=== PATIENT | male | born 1985 | race Caucasian/White ===

== ENCOUNTER 2020-07-22 17:41 | Emergency (ER) | payer BC ==
--- NOTE | 2020-07-22 19:22 | RAD REPORT ---
EXAM DESCRIPTION: CT - Head Brain Wo Cont - 07/22/2020 7:16 pm CLINICAL HISTORY: HEADACHE Headache, drowsiness COMPARISON: No comparisons TECHNIQUE: All CT scans are performed using dose optimization technique as appropriate and may inclu de automated exposure control or mA/KV adjustment according to patient size. FINDINGS: No intracranial hemorrhage, hydrocephalus or extra-axial fluid collection.No areas of brai n edema or evidence of midline shift. The paranasal sinuses and mastoids are clear. The calvarium is intact. IMPRESSION: No acute intracranial abnormality.
--- NOTE | 2020-07-22 19:23 | RAD REPORT ---
EXAM DESCRIPTION: CT - Soft Tissue Neck W/Contr CLINICAL HISTORY: PAIN Neck pain and swelling COMPARISON: No comparisons TECHNIQUE All CT scans are performed using dose optimization technique as appropriate and may includ e automated exposure control or mA/KV adjustment according to patient size. FINDINGS: Nasopharyngeal tissues are normal in appearance. Fossa Rosenmller are normal. Both palatine tonsils are mildly enlarged. Tongue base structures are normal. Epiglottis and aryepiglottic folds are normal. Piriform sinuses are well aerated. Normal sized thyroi d gland. The vocal cords are normal in appearance. Salivary glands are normal in appearance. No bulky lymphadenopathy in the neck. Upper lung whipple are clear. Included intracranial contents are unremarkable. IMPRESSION: No acute abnormality detected.
--- NOTE | 2020-07-22 19:28 | ER ---
Nurse's Notes [facility] Name: Jose Martinez Age: 35 yrs Sex: Male : 1985 Arrival Date: 07/22/2020 Time: 17:45 Bed Ultrasound Private MD: Diagnosis: Right sided neck pain Presentation: 07/22 17:51 Chief complaint: Sharp right sided neck pain that radiates to right side of face and hb eye x 2 days. Denies fever/injury/cough/sore throat. Coronavirus screen: At this time, the client does not indicate any symptoms associated with coronavirus-19. Ebola Screen: No symptoms or risks identified at this time. Initial Sepsis Screen: Does the patient meet any 2 criteria? No. Patient's initial sepsis screen is negative. Does the patient have a suspected source of infection? No. Patient's initial sepsis screen is negative. Risk Assessment: Do you want to hurt yourself or someone else? Patient reports no desire to harm self or others. Onset of symptoms was July 21, 2020. 17:51 Method Of Arrival: Ambulatory 17:51 Acuity: CHRIS 4 hb Triage Assessment: 18:44 General: Appears in no apparent distress. comfortable, Behavior is calm, cooperative. ls4 Pain: Complains of pain in neck Pain currently is 4 out of 10 on a pain scale. Quality of pain is described as sharp, shooting. Neuro: Level of Consciousness is awake, alert, obeys commands, Oriented to person, place, time, situation, Scaffold Builder are equal bilaterally Moves all extremities. Gait is steady, Speech is normal, Facial symmetry appears normal, Pupils are PERRLA, Intact. Respiratory: Airway is patent Respiratory effort is even, unlabored, Respiratory pattern is regular, Derm: No deficits noted. No signs and/or symptoms reported regarding the dermatologic system. Musculoskeletal: Circulation, motion, and sensation intact. Capillary refill < 3 seconds, Range of motion: intact in all extremities. Historical: - Allergies: 17:54 No Known Allergies; hb - Home Meds: 17:54 None [Active]; hb - PMHx: 17:54 None; hb - PSHx: 17:54 Left knee; hb - Immunization history:: Adult Immunizations up to date. - Social history:: Smoking status: Patient denies any tobacco usage or history of. Screenin:48 Abuse screen: Denies threats or abuse. Denies injuries from another. Nutritional ls4 screening: No deficits noted. Tuberculosis screening: No symptoms or risk factors identified. Fall Risk None identified. Assessment: 20:18 Reassessment: Patient appears in no apparent distress at this time. Patient and/or ls4 family updated on plan of care and expected duration. Pain level reassessed. Patient is alert, oriented x 3, equal unlabored respirations, skin warm/dry/pink. Neuro: No deficits noted. 20:18 Reassessment: Patient appears in no apparent distress at this time. Patient and/or ls4 family updated on plan of care and expected duration. Pain level reassessed. Patient is alert, oriented x 3, equal unlabored respirations, skin warm/dry/pink. PT DISCHARGE DELAYED, PT STATES THAT THE PAIN IS PULSATING, ULTRASOUND ORDERED. Neuro: Level of Consciousness is awake, alert, obeys commands, Oriented to person, place, time, situation, Scaffold Builder are equal bilaterally Moves all extremities. Gait is steady, Speech is normal, Facial symmetry appears normal. Cardiovascular: No deficits noted. Respiratory: No deficits noted. GI: No deficits noted. No signs and/or symptoms were reported involving the gastrointestinal system. : No deficits noted. No signs and/or symptoms were reported regarding the genitourinary system. Derm: No deficits noted. No signs and/or symptoms reported regarding the dermatologic system. Musculoskeletal: No deficits noted. No signs and/or symptoms reported regarding the musculoskeletal system. 20:52 Reassessment: Patient appears in no apparent distress at this time. Patient and/or ls4 family updated on plan of care and expected duration. Pain level reassessed. Patient is alert, oriented x 3, equal unlabored respirations, skin warm/dry/pink. Patient states symptoms have not improved. PT STILL CONCERNED THAT HE CAN SEE A PULSE IN HIS NECK. . Vital Signs: 17:51 BP 134 / 83; Pulse 83; Resp 16; Temp 97.8; Pulse Ox 100% on R/A; Weight 92.99 kg; hb Height 5 ft. 11 in. (180.34 cm); Pain 2/10; 20:53 BP 122 / 78; Pulse 74; Resp 16; Temp 97.9(O); Pulse Ox 99% on R/A; Pain 2/10; ls4 17:51 Body Mass Index 28.59 (92.99 kg, 180.34 cm) ED Course: 17:45 Patient arrived in ED. mr 17:53 Triage completed. hb 17:54 Arm band placed on. hb 18:02 No provider procedures requiring assistance completed. Inserted saline lock: 18 gauge ls4 in right antecubital area, using aseptic technique. 18:03 Sonya Beach [facility]-C [facility] kb 18:03 Andrae Matthews MD is Attending Physician. kb 18:25 Wedny Garcia, RN is Primary Nurse. ls4 18:48 Patient has correct armband on for positive identification. Bed in low position. Call ls4 light in reach. Side rails up X 1. Pulse ox on. NIBP on. Verbal reassurance given. 19:17 CT Soft Tissue Neck W/contr In Process Unspecified. EDMS 19:17 CT Head Brain wo Cont In Process Unspecified. EDMS 20:20 Ultrasound completed. Patient tolerated well. Notified DRY MOLDER/PA sonya. sg3 20:32 US Carotid Artery Bilateral In Process Unspecified. EDMS 20:54 IV discontinued, intact, bleeding controlled, No redness/swelling at site. Pressure ls4 dressing applied. Administered Medications: No medications were administered Outcome: 19:27 Discharge ordered by MD. kb 20:53 Discharged to home ambulatory. ls4 20:53 Condition: good 20:53 Discharge instructions given to patient, Instructed on discharge instructions, follow up and referral plans. Demonstrated understanding of instructions, follow-up care. 20:54 Patient left the ED. ls4 Signatures: Dispatcher [employer] EDMS Sonya Beach FNP-C FNP-Elina Albright Da SilvaJoanna, RN RN BazanKaitlin alcala sg3 Wendy Garcia, RN RN ls4
--- NOTE | 2020-07-22 19:28 | EDPHYS ---
Physician Documentation [facility] Name: Jose Martinez Age: 35 yrs Sex: Male : 1985 Arrival Date: 07/22/2020 Time: 17:45 Bed Ultrasound Private MD: ED Physician Andrae Matthews HPI: 07/22 18:49 This 35 yrs old Male presents to ER via Ambulatory with complaints of Neck kb Problem. 18:49 The patient or guardian complains of pain, that is acute, tenderness. The symptoms are kb located on the right submandibular area. Associated signs and symptoms: The patient has no apparent associated signs or symptoms, The patient denies any alcohol use. The patient is not apparently intoxicated. No neurological symptoms were experienced by the patient prior to arrival in the emergency department. Modifying factors: The symptoms are alleviated by nothing. the symptoms are aggravated by pressure. Severity of symptoms: At their worst the symptoms were moderate, in the emergency department the symptoms are unchanged. The patient has not experienced similar symptoms in the past. The patient has not recently seen a physician. 18:51 Onset: The symptoms/episode began/occurred last night. Context: The problem was kb sustained at home, The neck injury/problem resulted from from unknown cause. The pain does not radiate. pt reports neck pain with pressure to right submandibular area. States he woke up at 0230 and the pain was there. Reports he had a headache earlier today to right yazidism that is now resolved, but that is what made him come get it checked out. Historical: - Allergies: 17:54 No Known Allergies; hb - Home Meds: 17:54 None [Active]; hb - PMHx: 17:54 None; hb - PSHx: 17:54 Left knee; hb - Immunization history:: Adult Immunizations up to date. - Social history:: Smoking status: Patient denies any tobacco usage or history of. ROS: 18:47 Constitutional: Negative for fever, chills, and weight loss, ENT: Negative for injury, kb pain, and discharge, Cardiovascular: Negative for chest pain, palpitations, and edema, Respiratory: Negative for shortness of breath, cough, wheezing, and pleuritic chest pain, Abdomen/GI: Negative for abdominal pain, nausea, vomiting, diarrhea, and constipation, Back: Negative for injury and pain, MS/Extremity: Negative for injury and deformity, Skin: Negative for injury, rash, and discoloration. 18:47 Neck: Positive for tenderness, of the right submandibular area. 18:47 Neuro: Positive for headache. Exam: 18:47 Constitutional: This is a well developed, well nourished patient who is awake, alert, kb and in no acute distress. Head/Face: Normocephalic, atraumatic. ENT: Nares patent. No nasal discharge, no septal abnormalities noted. Tympanic membranes are normal and external auditory canals are clear. Oropharynx with no redness, swelling, or masses, exudates, or evidence of obstruction, uvula midline. Mucous membranes moist. Chest/axilla: Normal chest wall appearance and motion. Nontender with no deformity. No lesions are appreciated. Cardiovascular: Regular rate and rhythm with a normal S1 and S2. No gallops, murmurs, or rubs. Normal PMI, no JVD. No pulse deficits. Respiratory: Lungs have equal breath sounds bilaterally, clear to auscultation and percussion. No rales, rhonchi or wheezes noted. No increased work of breathing, no retractions or nasal flaring. Abdomen/GI: Soft, non-tender, with normal bowel sounds. No distension or tympany. No guarding or rebound. No evidence of tenderness throughout. Skin: Warm, dry with normal turgor. Normal color with no rashes, no lesions, and no evidence of cellulitis. MS/ Extremity: Pulses equal, no cyanosis. Neurovascular intact. Full, normal range of motion. Neuro: Awake and alert, GCS 15, oriented to person, place, time, and situation. Cranial nerves II-XII grossly intact. Motor strength 5/5 in all extremities. Sensory grossly intact. Cerebellar exam normal. Normal gait. 18:47 Neck: External neck: tenderness, that is moderate, of the right submandibular area, C-spine: appears grossly normal, no vertebral tenderness, no crepitus, Thyroid: appears normal, Trachea: is midline with no obvious abnormalities, ROM/movement: is normal, Lymph nodes: no appreciated lymphadenopathy. Vital Signs: 17:51 BP 134 / 83; Pulse 83; Resp 16; Temp 97.8; Pulse Ox 100% on R/A; Weight 92.99 kg; hb Height 5 ft. 11 in. (180.34 cm); Pain 2/10; 20:53 BP 122 / 78; Pulse 74; Resp 16; Temp 97.9(O); Pulse Ox 99% on R/A; Pain 2/10; ls4 17:51 Body Mass Index 28.59 (92.99 kg, 180.34 cm) hb MDM: 18:03 Patient medically screened. kb 18:47 Data reviewed: vital signs, nurses notes. Data interpreted: Pulse oximetry: on room air kb is 100 %. Interpretation: normal. 19:26 Counseling: I had a detailed discussion with the patient and/or guardian regarding: the kb historical points, exam findings, and any diagnostic results supporting the discharge/admit diagnosis, radiology results, the need for outpatient follow up, a family practitioner, to return to the emergency department if symptoms worsen or persist or if there are any questions or concerns that arise at home. 07/22 18:10 Order name: CT Soft Tissue Neck W/contr; Complete Time: 19:26 kb 07/22 18:10 Order name: CT Head Brain wo Cont; Complete Time: 19:23 kb 07/22 19:33 Order name: US Carotid Artery Bilateral kb Administered Medications: No medications were administered Disposition: 07/23 10:57 Co-signature as Attending Physician, Andrae Matthews MD I agree with the assessment and [facility] plan of care. Disposition: 07/22/20 19:27 Discharged to Home. Impression: Right sided neck pain. - Condition is Stable. - Discharge Instructions: Musculoskeletal Pain. - Prescriptions for Diclofenac Sodium 75 mg Oral Tablet, Delayed Release (E.C.) - take 1 tablet by ORAL route 2 times per day As needed; 30 tablet. - Medication Reconciliation Form, Thank You Letter, Antibiotic Education, Prescription Opioid Use form. - Follow up: Emergency Department; When: As needed; Reason: Worsening of condition. Follow up: Private Physician; When: 2 - 3 days; Reason: Recheck today's complaints, Continuance of care, Re-evaluation by your physician. Signatures: Dispatcher [employer] Sonya Simpson, SEMICONDUCTOR ENGINEER-C DEMARCUS-Andrae Wong MD MD cha Baxter, Heather, RN RN Wendy Mendes RN RN ls4 Corrections: (The following items were deleted from the chart) 07/22 20:54 19:27 07/22/2020 19:27 Discharged to Home. Impression: Right sided neck pain. Condition ls4 is Stable. Forms are Medication Reconciliation Form, Thank You Letter, Antibiotic Education, Prescription Opioid Use. Follow up: Emergency Department; When: As needed; Reason: Worsening of condition. Follow up: Private Physician; When: 2 - 3 days; Reason: Recheck today's complaints, Continuance of care, Re-evaluation by your physician. kb
--- NOTE | 2020-07-22 20:59 | RAD REPORT ---
EXAM DESCRIPTION: US - CP - 07/22/2020 8:32 pm CLINICAL HISTORY: PAIN Pain, headache, drowsiness COMPARISON: Soft Tissue Neck W/Contr dated 07/22/2020 TECHNIQUE: Real-time sonographic evaluation of both carotid systems was performed. Doppler interroga tion was performed with waveform tracing bilaterally. FINDINGS: Normal high resistance waveforms are noted in both external carotid arteries. The common c arotid arteries and internal carotid arteries show normal low resistance waveforms. No significant plaque formation is seen. Peak systolic and end diastolic velocity values and the ICA/ CCA ratios are in the non-hemodynamically significant range. Antegrade flow seen in both vertebral arteries. IMPRESSION: No significant atherosclerotic changes noted. No evidence of a hemodynamically significant stenosis.
[2020-07-22 21:53] VITALS: BP 122/78; TEMP 97.9; O2SAT 99
== END 2020-07-22 20:54 | disposition home or self-care (01) ==
LOC: ER 17:41
DX: M54.2 Cervicalgia (principal); R51 Headache
CPT/HCPCS: 82565; 70450; 70491; 93880; 99283; Q9967

== ENCOUNTER 2022-05-23 13:51 | Emergency (ER) | payer BC ==
--- NOTE | 2022-05-23 15:11 | RAD REPORT ---
EXAM DESCRIPTION: RAD - Elbow Right 3 View - 05/23/2022 2:54 pm CLINICAL HISTORY: Elbow pain FINDINGS: 3 millimeter triangular bony density lies along lateral aspect of the elbow. This is suspi cious for an acute avulsion fracture. Clinical correlation is needed see patient has point tenderness this region to confirm this. Bony density adjacent to medial humeral epicondyle appears chronic No dislocation
--- NOTE | 2022-05-23 15:29 | ER ---
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 Coronavirus screen: At this time, the client does not indicate any symptoms associated with coronavirus-19. Ebola Screen: Patient negative for fever greater than or equal to 101.5 degrees Fahrenheit, and additional compatible Ebola Virus Disease symptoms Patient denies exposure to infectious person. Patient denies travel to an Ebola-affected area in the 21 days before illness onset. No symptoms or risks identified at this time. Initial Sepsis Screen: Does the patient meet any 2 criteria? No. Patient's initial sepsis screen is negative. Does the patient have a suspected source of infection? No. Patient's initial sepsis screen is negative. Risk Assessment: Do you want to hurt yourself or someone else? Patient reports no desire to harm self or others. Onset of symptoms was May 20, 2022. 14:34 Method Of Arrival: Ambulatory iw 14:34 Acuity: CHRIS 4 iw Triage Assessment: 15:51 General: Appears in no apparent distress. Behavior is calm, cooperative. Injury alfred Description: fell on right elbow. Historical: - Allergies: 14:36 No Known Allergies; iw - Home Meds: 14:36 None [Active]; iw - PMHx: 14:36 None; iw - Immunization history:: Adult Immunizations up to date. - Social history:: Smoking status: unknown. Screenin:51 Abuse screen: Denies threats or abuse. Denies injuries from another. Nutritional alfred screening: No deficits noted. Tuberculosis screening: No symptoms or risk factors identified. Fall Risk None identified. Assessment: 15:50 Pain: Complains of pain in right elbow. Musculoskeletal: Reports pain in right arm Pain alfred is 10 out of 10 on a pain scale. Vital Signs: 14:34 BP 140 / 93; Pulse 89; Resp 16; Temp 98.0; Pulse Ox 100% on R/A; iw ED Course: 13:54 Patient arrived in ED. ja2 14:36 Triage completed. iw 14:37 Arm band placed on. iw 14:56 Elbow Right 3 View XRAY In Process Unspecified. EDMS 14:57 Sony[facility] Beach [facility]C [facility]. kb 14:57 Andrae Matthews MD is Attending Physician. kb 15:51 Patient has correct armband on for positive identification. Bed in low position. alfred 15:51 No provider procedures requiring assistance completed. Patient did not have IV access alfred during this emergency room visit. 15:51 Orthoglass splint: posterior elbow. zm Administered Medications: No medications were administered Medication: 15:50 VIS not applicable for this client. alfred Outcome: 15:29 Discharge ordered by . kb 15:52 Discharged to home ambulatory. alfred 15:52 Condition: good 15:52 Discharge instructions given to patient, Prescriptions given X 1. 15:53 Patient left the ED. alfred Signatures: Dispatcher [employer] EDMO Sonya Beach FNP-C FNP-Ckb Williams, Irene, RN Dominique Vazquez Heather, RN RN ha Martinez, Zaina zm
--- NOTE | 2022-05-23 15:30 | EDPHYS ---
Physician Documentation [facility] Name: Jose Martinez Age: 36 yrs Sex: Male : 1985 Arrival Date: 05/23/2022 Time: 13:54 Bed DIS3 Private MD: ED Physician Andrae Matthews HPI: 05/23 17:27 This 36 yrs old Male presents to ER via Ambulatory with complaints of Arm Injury. kb 17:27 The patient or guardian complains of injury, pain, swelling, tenderness. The complaints kb affect the right elbow. Context: The problem was sustained outdoors, resulted from a fall. Associated signs and symptoms: Pertinent positives: decreased range of motion, pain, swelling. Severity of symptoms: At their worst the symptoms were moderate, in the emergency department the symptoms are unchanged. The patient has not experienced similar symptoms in the past. The patient has not recently seen a physician. 17:31 Onset: The symptoms/episode began/occurred 5 day(s) ago. Treatment prior to arrival kb includes: no previous treatment. Modifying factors: The symptoms are alleviated by nothing. the symptoms are aggravated by movement. Historical: - Allergies: 14:36 No Known Allergies; iw - Home Meds: 14:36 None [Active]; iw - PMHx: 14:36 None; iw - Immunization history:: Adult Immunizations up to date. - Social history:: Smoking status: unknown. ROS: 17:24 Constitutional: Negative for fever, chills, and weight loss. kb 17:24 MS/extremity: Positive for decreased range of motion, pain, swelling, tenderness, of the right elbow. 17:24 All other systems are negative. Exam: 17:25 Constitutional: This is a well developed, well nourished patient who is awake, alert, kb and in no acute distress. Head/Face: Normocephalic, atraumatic. ENT: Moist Mucous membranes Cardiovascular: Regular rate and rhythm with a normal S1 and S2. No gallops, murmurs, or rubs. No pulse deficits. Respiratory: Respirations even and unlabored. No increased work of breathing. Talking in full sentences Skin: Warm, dry with normal turgor. Normal color. Neuro: Awake and alert, GCS 15, oriented to person, place, time, and situation. Moves all extremities. Normal gait. Psych: Awake, alert, with orientation to person, place and time. Behavior, mood, and affect are within normal limits. 17:25 Musculoskeletal/extremity: Extremities: grossly normal except: noted in the right elbow: decreased ROM, pain, swelling, tenderness, ROM: limited active range of motion, in the right elbow, Circulation is intact in all extremities. Sensation intact. Vital Signs: 14:34 BP 140 / 93; Pulse 89; Resp 16; Temp 98.0; Pulse Ox 100% on R/A; iw Procedures: 17:24 Splinting: Splint applied to right elbow using Orthoglass splint, sling, applied by kb tech. Examined by me, post splint application: neurovascular intact, 2+ distal pulses palpable, brisk capillary refill noted, Patient tolerated well. MDM: 15:29 Patient medically screened. kb 17:24 Data reviewed: vital signs, nurses notes. Data interpreted: Pulse oximetry: on room air kb is 100 %. Interpretation: normal. Counseling: I had a detailed discussion with the patient and/or guardian regarding: the historical points, exam findings, and any diagnostic results supporting the discharge/admit diagnosis, radiology results, the need for outpatient follow up, a orthopedic surgeon, to return to the emergency department if symptoms worsen or persist or if there are any questions or concerns that arise at home. 05/23 14:36 Order name: Elbow Right 3 View XRAY; Complete Time: 15:13 iw 05/23 15:29 Order name: Sling; Complete Time: 15:51 kb 05/23 15:29 Order name: Splint - Elbow - Posterior; Complete Time: 15:51 kb Administered Medications: No medications were administered Disposition Summary: 05/23/22 15:29 Discharge Ordered Location: Home kb Condition: Stable kb Diagnosis - Avulsion fracture right elbow kb Followup: kb - With: Emergency Department - When: As needed - Reason: Worsening of condition Followup: kb - With: Private Physician - When: 2 - 3 days - Reason: Recheck today's complaints, Continuance of care, Re-evaluation by your physician Discharge Instructions: - Discharge Summary Sheet kb - Musculoskeletal Pain kb Forms: - Medication Reconciliation Form kb - Thank You Letter kb - Antibiotic Education kb - Prescription Opioid Use kb Prescriptions: - Diclofenac Sodium 75 mg Oral tablet,delayed release (DR/EC) - take 1 tablet by ORAL route 2 times per day As needed; 30 tablet; Refills: 0, kb Product Selection Permitted - Cyclobenzaprine 10 mg Oral Tablet - take 1 tablet by ORAL route every 8 hours As needed; 15 tablet; Refills: 0, kb Product Selection Permitted Addendum: 05/25/2022 13:50 Co-signature as Attending Physician, Andrae CHEATHAM I agree with the assessment and c alfred plan of care. Signatures: Dispatcher [employer] Sonya Simpson, SCHOOL HEALTH AIDE-C DEMARCUS-Andrae Wong MD MD cha Williams, Irene, RN RN Joanna Palomares RN RN alfred
[2022-05-23 16:04] VITALS: BP 140/93; TEMP 98; O2SAT 100
== END 2022-05-23 15:53 | disposition home or self-care (01) ==
LOC: ER 13:51
PROC: 2W38X1Z Immobilization of Right Upper Extremity using Splint (ICD-10-PCS; principal; 2022-05-23)
DX: S42.401A Unspecified fracture of lower end of right humerus, initial encounter for closed fracture (principal)
CPT/HCPCS: 99283

== ENCOUNTER 2022-09-13 09:30 | Emergency (ER) | payer BC ==
--- OUTSIDE RECORDS SUMMARY | 2022-09-13 09:35 | XMS REPORT | Continuity of Care Document ---
:1985 Author Organization [facility] t Address [address] [place] [address] Care Team Providers Name Role Phone PCP, NO Primary Care Physician Unavailable Stan Attending Clinician Unavailable Kush Prince Attending Clinician Unavailable Kush Prince Attending Clinician [phone] REBLE CONTRERAS Attending Clinician Unavailable Stan Admitting Clinician Unavailable Kush Prince Admitting Clinician Unavailable Payers Payer Name Policy Type Policy Number Effective Date Expiration Date Brian moreno [place] [id number] 2021 00:00:00 [place] ([place] Problems Condition Condition Condition Status Onset Resolution Last Treating Co mments Source Name Details Category Date Date Treatment Clinician Date Postoperat Postoperat Problem Active A zalea jarad pain jarad Pain 9-20 Orthop e 00:00: dic 00 Sports Medicin e Rupture of Rupture of Problem Active A zalea elbow Elbow 9-16 Orthope ligament Ligament 00:00: dic 00 Sports Medicin e Pain in Pain in Problem Active Mihaela elbow Elbow 9-16 Orthope 00:00: dic 00 Sports Medicin e Closed Closed Problem Active Mihaela fracture Fracture 16 Orthop e of head of of Head of 00:00: di c right Right 00 Sports radius Radius Medicin e Allergies, Adverse Reactions, Alerts Allergy Allergy Status Severity Reaction(s) Onset Inactive Treating Comm ents Source Name Type Date Date Clinician NO KNOWN Allergy Active Unknown LAYLA U ALLERGY to 3-18 S substanc 00:00: Health e 00 Social History Social Habit Start Date Stop Date Quantity Comments Source Sex Assigned At [birth year] [facility] Smoking Status Start Date Stop Date Source Never Smoker Mihaela [facility] Sports Medicine Unknown if ever [facility] Ordered Filled Start Stop Current Ordering Indication Dosage Frequency Signature Comments Components Source Medication Medication Date Date Medication? Clinician (SIG) Name Name Amoxicillin No 875mg Twice A CH RISTU /Clavulanat 7-10 Day S e Potassium 05:55: Health (Augmentin 00 875 Mg) 1 Each TABLET acetaminoph acetaminoph No acetaminop Mihaela en 300 en 300 hen 300 Orthope mg-codeine mg-codeine mg-codeine dic 30 mg 30 mg 30 mg Sports tablet TAKE tablet TAKE tablet Medicin ONE (1) ONE (1) TAKE ONE e TABLET(S) TABLET(S) (1) BY MOUTH BY MOUTH TABLET(S) EVERY SIX EVERY SIX BY MOUTH HOURS HOURS EVERY SIX NEEDED FOR NEEDED FOR HOURS PAIN. PAIN. NEEDED FOR PAIN. amoxicillin amoxicillin No amoxicilli Mihaela 875 mg 875 mg n 875 mg Orthope tablet TAKE tablet TAKE tablet dic ONE (1) ONE (1) TAKE ONE Sport s TABLET BY TABLET BY (1) TABLET Medicin MOUTH TWICE MOUTH TWICE BY MOUTH e A DAY. A DAY. TWICE A DAY. amoxicillin amoxicillin No amoxicilli Mihaela 875 875 n 875 Orthope mg-potassiu mg-potassiu mg-potassi dic m m um Sports clavulanate clavulanate clavulanat Medicin 125 mg 125 mg e 125 mg e tablet tablet tablet cyclobenzap cyclobenzap No cyclobenza Mihaela rine 10 mg rine 10 mg lukas 10 Orthope tablet TAKE tablet TAKE mg tablet dic ONE (1) ONE (1) TAKE ONE Sport s TABLET(S) TABLET(S) (1) Medic in BY MOUTH BY MOUTH TABLET(S) e EVERY EIGHT EVERY EIGHT BY MOUTH HOURS HOURS EVERY NEEDED FOR NEEDED FOR EIGHT MUSCLE MUSCLE HOURS SPASMS. SPASMS. NEEDED FOR MUSCLE SPASMS. diclofenac diclofenac No diclofenac Mihaela sodium 75 sodium 75 sodium 75 Orthope mg mg mg dic tablet,eleuterio tablet,eleuterio tablet,del Sports yed release yed release ayed M edicin TAKE ONE TAKE ONE release e (1) (1) TAKE ONE TABLET(S) TABLET(S) (1) BY MOUTH BY MOUTH TABLET(S) TWICE A DAY TWICE A DAY BY MOUTH NEEDED. NEEDED. TWICE A DAY NEEDED. hydrocodone hydrocodone No 1 Q6H hydrocodon Mihaela 5 5 e 5 Orthope mg-acetamin mg-acetamin mg-acetami dic ophen 325 ophen 325 nophen 325 Sports mg tablet mg tablet mg tablet Medicin Take 1 Take 1 Take 1 e tablet tablet tablet every 6 every 6 every 6 hours by hours by hours by oral route oral route oral route as needed. as needed. as needed. meloxicam meloxicam No meloxicam Mihaela 7.5 mg 7.5 mg 7.5 mg Orthope tablet TAKE tablet TAKE tablet dic ONE (1) OR ONE (1) OR TAKE ONE Sports TWO (2) TWO (2) (1) OR TWO Med icin TABLET(S) TABLET(S) (2) e BY MOUTH BY MOUTH TABLET(S) DAILY DAILY BY MOUTH NEEDED. NEEDED. DAILY NEEDED. neomycin-po neomycin-po No neomycin-p Mihaela lymyxin-hyd lymyxin-hyd olymyxin-h Orthope rocort 3.5 rocort 3.5 ydrocort dic mg/mL-10,00 mg/mL-10,00 3.5 S ports 0 unit/mL-1 0 unit/mL-1 mg/mL-10,0 Medicin % ear % ear 00 e solution solution unit/mL-1 USE FOUR USE FOUR % ear (4) DROPS (4) DROPS solution IN LEFT EAR IN LEFT EAR USE FOUR FOUR TIMES FOUR TIMES (4) DROPS A DAY. A DAY. IN LEFT EAR FOUR TIMES A DAY. prednisone prednisone No prednisone Mihaela 20 mg 20 mg 20 mg Orthope tablet TAKE tablet TAKE tablet dic TWO (2) TWO (2) TAKE TWO Sport s TABLET(S) TABLET(S) (2) Medic in BY MOUTH ON BY MOUTH ON TABLET(S) e DAY 1 AND DAY 1 AND BY MOUTH 2, THEN 1 2, THEN 1 ON DAY 1 TABLET ON TABLET ON AND 2, DAYS 3, 4, DAYS 3, 4, THEN 1 5. 5. TABLET ON DAYS 3, 4, 5. acetaminoph acetaminoph No acetaminop Mihaela en 300 en 300 hen 300 Orthope mg-codeine mg-codeine mg-codeine dic 30 mg 30 mg 30 mg Sports tablet TAKE tablet TAKE tablet Medicin ONE (1) ONE (1) TAKE ONE e TABLET(S) TABLET(S) (1) BY MOUTH BY MOUTH TABLET(S) EVERY SIX EVERY SIX BY MOUTH HOURS HOURS EVERY SIX NEEDED FOR NEEDED FOR HOURS PAIN. PAIN. NEEDED FOR PAIN. amoxicillin amoxicillin No amoxicilli Mihaela 875 mg 875 mg n 875 mg Orthope tablet TAKE tablet TAKE tablet dic ONE (1) ONE (1) TAKE ONE Sport s TABLET BY TABLET BY (1) TABLET Medicin MOUTH TWICE MOUTH TWICE BY MOUTH e A DAY. A DAY. TWICE A DAY. amoxicillin amoxicillin No amoxicilli Mihaela 875 875 n 875 Orthope mg-potassiu mg-potassiu mg-potassi dic m m Sports clavulanate clavulanate clavulanat Medicin 125 mg 125 mg e 125 mg e tablet tablet tablet cyclobenzap cyclobenzap No cyclobenza Mihaela rine 10 mg rine 10 mg lukas 10 Orthope tablet TAKE tablet TAKE mg tablet dic ONE (1) ONE (1) TAKE ONE Sport s TABLET(S) TABLET(S) (1) Medic in BY MOUTH BY MOUTH TABLET(S) e EVERY EIGHT EVERY EIGHT BY MOUTH HOURS HOURS EVERY NEEDED FOR NEEDED FOR EIGHT MUSCLE MUSCLE HOURS SPASMS. SPASMS. NEEDED FOR MUSCLE SPASMS. diclofenac diclofenac No diclofenac Mihaela sodium 75 sodium 75 sodium 75 Orthope mg mg mg dic tablet,eleuterio tablet,eleuterio tablet,del Sports yed release yed release ayed M edicin TAKE ONE TAKE ONE release e (1) (1) TAKE ONE TABLET(S) TABLET(S) (1) BY MOUTH BY MOUTH TABLET(S) TWICE A DAY TWICE A DAY BY MOUTH NEEDED. NEEDED. TWICE A DAY NEEDED. hydrocodone hydrocodone No hydrocodon Mihaela 5 5 e 5 Orthope mg-acetamin mg-acetamin mg-acetami dic ophen 325 ophen 325 nophen 325 Sports mg tablet mg tablet mg tablet Medicin TAKE ONE TAKE ONE TAKE ONE e (1) (1) (1) TABLET(S) TABLET(S) TABLET(S) BY MOUTH BY MOUTH BY MOUTH EVERY SIX EVERY SIX EVERY SIX HOURS HOURS HOURS NEEDED. NEEDED. NEEDED. meloxicam meloxicam No meloxicam Mihaela 7.5 mg 7.5 mg 7.5 mg Orthope tablet TAKE tablet TAKE tablet dic ONE (1) OR ONE (1) OR TAKE ONE Sports TWO (2) TWO (2) (1) OR TWO Med icin TABLET(S) TABLET(S) (2) e BY MOUTH BY MOUTH TABLET(S) DAILY DAILY BY MOUTH NEEDED. NEEDED. DAILY NEEDED. neomycin-po neomycin-po No neomycin-p Mihaela lymyxin-hyd lymyxin-hyd olymyxin-h Orthope rocort 3.5 rocort 3.5 ydrocort dic mg/mL-10,00 mg/mL-10,00 3.5 S ports 0 unit/mL-1 0 unit/mL-1 mg/mL-10,0 Medicin % ear % ear 00 e solution solution unit/mL-1 USE FOUR USE FOUR % ear (4) DROPS (4) DROPS solution IN LEFT EAR IN LEFT EAR USE FOUR FOUR TIMES FOUR TIMES (4) DROPS A DAY. A DAY. IN LEFT EAR FOUR TIMES A DAY. prednisone prednisone No prednisone Mihaela 20 mg 20 mg 20 mg Orthope tablet TAKE tablet TAKE tablet dic TWO (2) TWO (2) TAKE TWO Sport s TABLET(S) TABLET(S) (2) Medic in BY MOUTH ON BY MOUTH ON TABLET(S) e DAY 1 AND DAY 1 AND BY MOUTH 2, THEN 1 2, THEN 1 ON DAY 1 TABLET ON TABLET ON AND 2, DAYS 3, 4, DAYS 3, 4, THEN 1 5. 5. TABLET ON DAYS 3, 4, 5. Vital Signs Vital Name Observation Time Observation Value Comments Source Height 2022-08-06 00:00:00 71 [in_i] [facility] Medicine BMI (Body Mass 2022-08-06 00:00:00 29.3 kg/m2 Mihaela Orthopedic Index) Sports Medicine Body Weight 2022-08-06 00:00:00 210 [lb_av] [facility] BP Diastolic 2022-05-18 06:00:00 85 mm[Hg] [facility] BP Systolic 2022-05-18 06:00:00 122 mm[Hg] [facility] Heart Rate 2022-05-18 06:00:00 87 /min [facility] Respiratory rate 2022-05-18 06:00:00 16 /min [facility] Body Temperature 2022-05-18 06:00:00 97.8 [degF] [facility] BP Diastolic 2022-05-18 05:59:00 85 mm[Hg] [facility] BP Systolic 2022-05-18 05:59:00 122 mm[Hg] [facility] Heart Rate 2022-05-18 05:59:00 87 /min [facility] Respiratory rate 2022-05-18 05:59:00 16 /min [facility] Body Temperature 2022-05-18 05:59:00 97.8 [degF] [facility] BP Diastolic 2022-05-18 05:32:00 85 mm[Hg] [facility] BP Systolic 2022-05-18 05:32:00 122 mm[Hg] [facility] Heart Rate 2022-05-18 05:32:00 87 /min [facility] Respiratory rate 2022-05-18 05:32:00 16 /min [facility] Body Temperature 2022-05-18 05:32:00 97.8 [degF] [facility] BP Diastolic 2022-05-18 05:31:00 85 mm[Hg] [facility] BP Systolic 2022-05-18 05:31:00 122 mm[Hg] [facility] Heart Rate 2022-05-18 05:31:00 87 /min [facility] Respiratory rate 2022-05-18 05:31:00 16 /min [facility] Body Temperature 2022-05-18 05:31:00 97.8 [degF] [facility] Procedures Procedure Date / Time Performed Performing Clinician Sourc e XR, elbow, 2 view 2022-08-06 00:00:00 Mihaela [facility] Sports Medicine XR, elbow, 2 view 2022-07-25 00:00:00 Mihaela [facility] Sports Medicine MRI, elbow, w/o 2022-07-25 00:00:00 Mihaela Ortho pedic contrast Sports Medicine Knee Surgery Mihaela Orthopedi c Sports Medicine Encounters Start End Encounter Admission Attending Care Care Encounter Source Date/Time Date/Time Type Type Clinicians Facility Department ID [facility]22-06-11 [facility] [id number]02 [facility] 2022-09-02 2022-09-02 Outpatient FOG_Gharbao AOSM AOSM [id number] Mihaela 00:00:00 00:00:00 Katelynn [id number] Orth ope dic Sports Medicin e 2022-08-14 2022-08-14 Outpatient FOG_Gharbao AOSM AOSM [id number] Mihaela 00:00:00 00:00:00 Katelynn [id number] Orth ope dic Sports Medicin e 2022-08-06 2022-08-06 Outpatient FOG_Gharbao AOSM AOSM [id number] Mihaela 00:00:00 00:00:00 Katelynn [id number] Orth ope dic Sports Medicin e 2022-08-06 2022-08-06 Kush S AOSM [place] - Ortho [id number] Mihaela 00:00:00 00:00:00 Maribel Prince MD: [id number] FOG_Ofc dic [facility], [place] [id number] , Ph. [phone] 2022-08-05 2022-08-05 Outpatient FOG_Gharbao AOSM AOSM [id number] Mihaela 00:00:00 00:00:00 Katelynn [id number] Orth ope dic Sports Medicin e 2022-07-31 2022-07-31 Outpatient FOG_Gharbao AOSM AOSM [id number] Mihaela 00:00:00 00:00:00 Katelynn [id number] Orth ope dic Sports Medicin e 2022-07-29 2022-07-29 Kush S [facility]OS[facility] [place] - Orth[place] [id number] Mihaela 00:00:00 00:00:00 Maribel Prince MD: [id number] FOG_Surgery dic [facility] [place] [id number] , Ph. [phone] 2022-07-25 2022-07-25 Outpatient EL [facility] [id number] [facility] 10:30:00 10:30:00 Kush [facility] 2022-07-25 2022-07-25 Outpatient FOG_Gharbao AOSM AOSM [id number] Mihaela 00:00:00 00:00:00 Katelynn [id number] Orth ope dic Sports Medicin e 2022-07-25 2022-07-25 Kush S AOS[facility] [place] - Ortho [id number] Mihaela 00:00:00 00:00:00 Maribel Prince MD: [id number] FOG_Ofc dic [facility] e [id number] , Ph. [phone] 2022-07-25 2022-07-25 Outpatient RONALD Prince AOSM [id number] 00:00:00 00:00:00 Kush Torres [id number] 2022-07-17 2022-07-17 Outpatient FOG_Gharbao AOSM AOSM [id number] Mihaela 00:00:00 00:00:00 Katelynn [id number] Orth ope dic Sports Medicin e 2022-05-18 2022-05-18 Emergency ER OCTAVIO CONTRERAS [id number] [facility] 05:19:00 05:55:00 REBEL [id number] S Health 2022-05-18 2022-05-18 Departed ER OCTAVIO CONTRERAS [id number] [facility] 05:19:00 05:55:00 Emergency REBEL 31 S Room Health Results Test Description Test Time Test Comments Results Result [facility] e Comments - MRI UP JNT W/O 2022-07-25 CONT RT 12:08:00 [facility] : 1985 Sex: M Patient Name: ROBERTO GUARDADO Unit No: [id number] EXAMS: CPT CODE: [id number] MRI UP JNT W/[place] [id number] MRI OF THE RIGHT ELBOW DIAGNOSIS: There is a mildly depressed and displaced fracture of the radial head anterior medially with probable partial healing distally. If clinically indicated CT would be helpful in further evaluation. No healing is seen at the level of the joint. Also noted is a small fracture fragment off the tip of the olecranon. Irregularity of the coronoid process is seen with bone marrow edema but without evidence for acute fracture. Contusion of the posterior capitellum is seen. There is an avulsion of the proximal attachment of the lateral collateral ligament. The medial collateral ligament is intact. A large joint effusion is present. COMMENT: COMPARISON: No prior exams available. Scans were performed in the sagittal, axial and coronal planes utilizing T1, spin density with fat saturation, T2 and inversion recovery images. Bony abnormalities are present as described. There is a large joint effusion without evidence for a loose body. The common flexor and extensor tendons and biceps and triceps tendons are intact. No muscle strains or tears are seen. at 1208 Reported and signed by: Reyes Kellogg MD CC: Kush Prince MD Technologist: IMANI JENIKNS. Transcribed D/ (1208) MartaJCL [facility] NAME: ROBERTO GUARDADO [address] [facility] PHYS: Kush Lora MD : 1985 AGE: 37 SEX: M [place] [address] LOC: Y.MRI PHONE #: [phone] EXAM DATE: 07/25/2022 STATUS: REG CLI FAX #: [phone] RAD #: D/C DT PAGE 1 Signed Report Patient Name: ROBERTO GUARDADO Unit No: [id number] EXAMS: CPT CODE: [id number] [place] JNT W/[place] [id number] (Continued) Orig Print D/T: S: 07/25/2022 (1212) [facility] NAME: ROBERTO GUARDADO [address] [facility] PHYS: Kush Lora MD : 1985 AGE: 37 SEX: M [place] [address] LOC: Y.MRI PHONE #: [phone] EXAM DATE: 07/25/2022 STATUS: REG CLI FAX #: [phone] RAD #: D/C DT PAGE 2 Signed Report PLATELET COUNT 2019-02-01 14:31:00 Test Item Value Reference Range Interpretation Comme nts PLATELET COUNT (IANAKER) (test code = 756) 268 K/CU MM 150-450
--- NOTE | 2022-09-13 10:04 | ER ---
Nurse's Notes [facility] Name: Jose Martinez Age: 37 yrs Sex: Male : 1985 Arrival Date: 09/13/2022 Time: 09:33 Bed Waiting Private MD: Diagnosis: Sebaceous cyst Presentation: 09/13 09:50 Chief complaint: Patient states: R elbow surgery 7 weeks ago. Pt noticed a bump to ss elbow 3 weeks ago and has not been able to follow up with surgeon of yet. Also c/o burning/ increased sensitivity to R hand, thumb and index finger. Coronavirus screen: Client denies travel out of the [place] in the last 14 days. Ebola Screen: Patient denies exposure to infectious person. Patient denies travel to an Ebola-affected area in the 21 days before illness onset. Initial Sepsis Screen: Does the patient meet any 2 criteria? No. Patient's initial sepsis screen is negative. Does the patient have a suspected source of infection? No. Patient's initial sepsis screen is negative. Risk Assessment: Do you want to hurt yourself or someone else? Patient reports no desire to harm self or others. Onset of symptoms was September 23, 2022. 09:50 Method Of Arrival: Ambulatory ss 09:50 Acuity: CHRIS 4 ss Historical: - Allergies: 09:52 No Known Allergies; ss - Home Meds: 09:52 None [Active]; ss - PSHx: 09:52 R elbow; ss - Immunization history:: Client reports having NOT received the Covid vaccine. - Social history:: Smoking status: Patient denies any tobacco usage or history of. Screenin:59 Abuse screen: Denies threats or abuse. Denies injuries from another. Nutritional ss screening: No deficits noted. Tuberculosis screening: Never had TB. Fall Risk None identified. Assessment: 09:59 General: Appears in no apparent distress. comfortable, Behavior is calm, cooperative. ss Pain: Complains of pain in palmar aspect of middle phalanx of right index finger, palmar aspect of proxima; phalanx of right index finger, palmar aspect of proximal phalanx of right thumb, heel of right hand and Right first web space Pain currently is 3 out of 10 on a pain scale. Quality of pain is described as burning, tender, Is continuous. Neuro: Level of Consciousness is awake, alert, obeys commands. Cardiovascular: Capillary refill < 3 seconds is brisk in bilateral fingers Pulses are palpable in right radial artery and left radial artery. Respiratory: Airway is patent Respiratory effort is even, unlabored, Respiratory pattern is regular, symmetrical. Derm: Skin is pink, warm \T\ dry. normal. Musculoskeletal: Swelling present in right elbow. Vital Signs: 09:50 BP 127 / 80; Pulse 98; Resp 16; Temp 98.4(TE); Pulse Ox 97% on R/A; Pain 3/10; ss ED Course: 09:33 Patient arrived in ED. rg4 09:48 Danielle Painting FNP-C [facility]. snw 09:48 Nitesh Maldonado MD is Attending Physician. snw 09:52 Triage completed. ss 09:52 Arm band placed on left wrist. ss 09:58 Luzmaria Hines, NIRMAL is Primary Nurse. ss 09:59 Patient has correct armband on for positive identification. Bed in low position. ss 10:02 Gomez Davis MD is Referral Physician. snw 10:11 No provider procedures requiring assistance completed. Patient did not have IV access ss during this emergency room visit. Administered Medications: No medications were administered Medication: 09:59 VIS not applicable for this client. ss Outcome: 10:03 Discharge ordered by . snw 10:11 Discharged to home ambulatory. ss 10:11 Condition: good 10:11 Discharge instructions given to patient, Instructed on discharge instructions, follow up and referral plans. medication usage, Demonstrated understanding of instructions, follow-up care, medications, Prescriptions given X 1. 10:11 Patient left the ED. ss Signatures: Danielle Painting FNP-C PIGMENT PUMPER-Csnw Luzmaria Hines, NIRMAL RN ss Alyssa Rdz rg4
--- NOTE | 2022-09-13 10:04 | EDPHYS ---
Physician Documentation [facility] Name: Jose Martinez Age: 37 yrs Sex: Male : 1985 Arrival Date: 09/13/2022 Time: 09:33 Bed Waiting Private MD: ED Physician Nitesh Maldonado HPI: 09/13 10:07 This 37 yrs old Male presents to ER via Ambulatory with complaints of Hand Pain, Bump snw on Arm. 10:07 The patient or guardian reports pain. The complaints affect the right hand diffusely. snw Context: resulted from s/p surgery. Onset: The symptoms/episode began/occurred gradually, 1 month(s) ago, and became persistent. Associated signs and symptoms: Pertinent positives: burning hand pain. Severity of symptoms: At their worst the symptoms were moderate. It is unknown whether or not the patient has had similar symptoms in the past. The patient has not recently seen a physician. Historical: - Allergies: 09:52 No Known Allergies; ss - Home Meds: 09:52 None [Active]; ss - PSHx: 09:52 R elbow; ss - Immunization history:: Client reports having NOT received the Covid vaccine. - Social history:: Smoking status: Patient denies any tobacco usage or history of. ROS: 10:09 Constitutional: Negative for fever, chills, and weight loss, Eyes: Negative for injury, snw pain, redness, and discharge, ENT: Negative for injury, pain, and discharge, Neck: Negative for injury, pain, and swelling, Cardiovascular: Negative for chest pain, palpitations, and edema, Respiratory: Negative for shortness of breath, cough, wheezing, and pleuritic chest pain, Abdomen/GI: Negative for abdominal pain, nausea, vomiting, diarrhea, and constipation, Back: Negative for injury and pain, : Negative for injury, bleeding, discharge, and swelling, Neuro: Negative for headache, weakness, numbness, tingling, and seizure, Psych: Negative for depression, anxiety, suicide ideation, homicidal ideation, and hallucinations. 10:09 MS/extremity: Positive for elbow surgery 05/30. 10:09 Skin: Positive for swelling, of the cystic swelling at superior incision margin. Exam: 10:05 Constitutional: This is a well developed, well nourished patient who is awake, alert, snw and in no acute distress. Head/Face: Normocephalic, atraumatic. Eyes: Pupils equal round and reactive to light, extra-ocular motions intact. Lids and lashes normal. Conjunctiva and sclera are non-icteric and not injected. Cornea within normal limits. Periorbital areas with no swelling, redness, or edema. Chest/axilla: Normal chest wall appearance and motion. Nontender with no deformity. No lesions are appreciated. Cardiovascular: Regular rate and rhythm with a normal S1 and S2. No gallops, murmurs, or rubs. Normal PMI, no JVD. No pulse deficits. Respiratory: Lungs have equal breath sounds bilaterally, clear to auscultation and percussion. No rales, rhonchi or wheezes noted. No increased work of breathing, no retractions or nasal flaring. MS/ Extremity: Pulses equal, no cyanosis. Neurovascular intact. Full, normal range of motion. Neuro: Awake and alert, GCS 15, oriented to person, place, time, and situation. Cranial nerves II-XII grossly intact. Motor strength 5/5 in all extremities. Sensory grossly intact. Cerebellar exam normal. Normal gait. 10:05 Skin: Appearance: normal except for affected area, injury, pt had orthopedic surgery to right elbow. Incision is well healed except for the superior aspect, pt states he had a retained suture that he removed but the area swelled into a cystic lesion, pt states it makes his thenar/hypothenar burn like fire, peripheral pulses normal. Vital Signs: 09:50 BP 127 / 80; Pulse 98; Resp 16; Temp 98.4(TE); Pulse Ox 97% on R/A; Pain 3/10; ss MDM: 09:54 Patient medically screened. snw 10:04 Data reviewed: vital signs, nurses notes. Data interpreted: Pulse oximetry: on room air snw is 97 %. Interpretation: normal. Counseling: I had a detailed discussion with the patient and/or guardian regarding: the historical points, exam findings, and any diagnostic results supporting the discharge/admit diagnosis, the need for outpatient follow up, to return to the emergency department if symptoms worsen or persist or if there are any questions or concerns that arise at home. Special discussion: Based on the history and exam findings, there is no indication for further emergent testing or inpatient evaluation. I discussed with the patient/guardian the need to see the general surgeon for further evaluation of the symptoms. Administered Medications: No medications were administered Disposition Summary: 09/13/22 10:03 Discharge Ordered Location: Home snw Condition: Stable snw Diagnosis - Sebaceous cyst snw Followup: snw - With: Emergency Department - When: As needed - Reason: Worsening of condition Followup: snw - With: Gomez Davis MD - When: As needed - Reason: Recheck today's complaints, Continuance of care, Re-evaluation by your physician Discharge Instructions: - Discharge Summary Sheet snw - Neuropathic Pain snw - Epidermal Cyst snw Forms: - Work release form snw - Medication Reconciliation Form snw - Thank You Letter snw - Antibiotic Education snw - Prescription Opioid Use snw Prescriptions: - Neurontin 300 mg Oral Capsule - take 1 capsule by ORAL route At bedtime; 20 capsule; Refills: 0, Product snw Selection Permitted Signatures: Danielle Painting, BANKING ANALYST-C BANKING ANALYST-Csnw Luzmaria Hines RN RN ss
[2022-09-13 10:17] VITALS: BP 127/80; TEMP 98.4; O2SAT 97
== END 2022-09-13 10:11 | disposition home or self-care (01) ==
LOC: ER 09:30
DX: L72.3 Sebaceous cyst (principal)
CPT/HCPCS: 99282